=== PATIENT | female | born 1980 | race African-American/Black ===

== ENCOUNTER 2017-04-18 04:44 | Emergency (ER) | payer MEDICAID ==
[~2017-04-18] VITALS: Ht 162.6 cm; Wt 86.2 kg
[2017-04-18 04:50] VITALS: BP 128/80
[2017-04-18 05:32] LABS: Urine Bilirubin Negative (Negative); Urine Blood 2+ /uL (Negative); Urine Color Yellow (Yellow); Urine Glucose Normal (Normal); Urine Ketone Negative (Negative); Urine Nitrite Negative (Negative); Urine RBC 46 /hpf (0 - 4); Urine Squamous Epithelial Cell FEW /hpf (<5); Urine Urobilinogen Normal (Negative); Urine pH 5.5 (5.0-8.0)
[2017-04-18 05:42] LABS: Basophils # (auto) 0.1 uL; Basophils % (auto) 0.5 % (0.0-2.0); Hemoglobin 10.7 g/dL (12.2-16.2); Monocytes # (auto) 0.6 uL
[2017-04-18 05:44] LABS: Eosinophils # (auto) 0.1 uL; Eosinophils % (auto) 1.3 % (0.0-7.0); Hematocrit 35.5 % (36.0-46.0); Lymphocytes # (auto) 2.1 uL; Lymphocytes % (auto) 18.6 % (10.0-50.0); Mean Corpuscular Hemoglobin 22.3 pg (28.0-32.0); Mean Corpuscular Hgb Conc. 30.2 g/dL (32.0-36.0); Mean Platelet Volume 8.3 fL (6.9-10.8); Monocytes % (auto) 5.3 % (0.0-12.0); Neutrophils # (auto) 8.3 uL; Neutrophils % (auto) 74.3 % (37.0-80.0); Nucleated Red Blood Cells % 0.1 %; Platelet Count (auto) 307 10^3/uL (140-450); White Blood Cell 11.2 10^3/uL (4.4-10.8)
[2017-04-18 05:51] LABS: Red Cell Distribution Width 21.1 % (11.8-14.3)
[2017-04-18 05:55] LABS: Albumin 3.5 g/dL (3.4-5.0); BUN/Creatinine Ratio 21.7; Bilirubin, Total 0.1 mg/dL (0.2-1.0); Calcium 8.4 mg/dL (8.5-10.1); Potassium 4.2 mmol/L (3.5-5.1); Total Protein 7.3 g/dL (6.4-8.2)
== END 2017-04-18 07:55 | disposition left against medical advice (07) ==
LOC: EDBD 04:44 → ER 04:48 → EDBD 04:48 → ER 07:55
DX: R55 Syncope and collapse (principal); Z53.21 Procedure and treatment not carried out due to patient leaving prior to being seen by health care provider
CPT/HCPCS: 36415; 80053; 80307; 81001; 81025; 85025; 93005